=== PATIENT | male | born 1940 ===

== ENCOUNTER → 2016-06-07 | Outpatient (CLI) | payer MEDICARE ==
[~2016-06-07] MED LIST: ACET325T38 PO; ALPR0.5T PO; ALPR0.5T5 PO; ATN25T PO; CLPD75T PO; FURO40TA4 PO; GBPN600T PO; LACT1CAP62 PO; MTP25TSR PO; OMEP20CA12 PO; PANT40TA3 PO; PRAV40TA2 PO; PRV20T PO; PYRI60TA PO; QUET50TA21 PO; TRM50T PO; VENL150C53 PO; VERA360C2 PO; VNL75CCR PO; ZLP5T PO; [UNRECOGNIZED DRUG - CODE] PO
--- NOTE | 2016-06-07 12:16 | Diagnostic Imaging Report ---
PROCEDURE: CT chest pelvis with and abdomen with and without contrast. TECHNIQUE: Multiple contiguous axial images were obtained through the chest, abdomen and pelvis after uneventful bolus administration of intravenous contrast. Precontrast acquisitions were acquired through the abdomen. DATE: June 07, 2016. COMPARISON: Chest radiographs April 25, 2016. Abdominal radiographs October 17, 2013. INDICATION: 76-year-old male with history of colon cancer. FINDINGS: There are changes of centrilobular emphysema. There is a pleurally based opacity in the peripheral aspect of the left upper lobe on axial image 12 which measures up to approximately 8 mm in size. This potentially could relate to focal scarring although a pulmonary nodule would be difficult to exclude. There is a left lower lobe pulmonary nodule on image 51 which measures 3 mm in size. There is no identified focal airspace consolidation additionally noted. There is no pleural effusion. There is no pneumothorax. There is no identified pulmonary embolus. The main pulmonary artery is normal in caliber. The heart is not enlarged. There is no pericardial effusion. There are coronary artery calcifications. There are additional areas of atherosclerotic disease. There is direct origin of the left vertebral artery off the aortic arch. There is a precarinal lymph node on image 23 which measures up to approximately 7 mm in short axis. There are no identified abnormally enlarged mediastinal, hilar, or axillary lymph nodes which specifically meet CT size criteria for adenopathy. The liver is normal in size and contour. There is no identified liver lesion. The main, right, and left portal vein are patent. The gallbladder is unremarkable. There is no intrahepatic or extrahepatic bile duct dilation. The pancreatic parenchyma is unremarkable. The spleen is normal in size. The adrenal glands are unremarkable. Unremarkable appearance of the renal parenchyma. The urinary collecting systems are not distended. There is no renal or ureteral stone. The urinary bladder is grossly unremarkable. The prostate gland is mildly prominent in size. There are sutures at the level of the right colon with adjacent inflammatory stranding and wall thickening of the bowel. There is no identified drainable fluid collection or free intraperitoneal air. There is no large amount of free pelvic fluid. There is an infrarenal abdominal aortic aneurysm which measures up to approximately 3.1 x 3.1 cm in diameter. There is no identified abnormally enlarged lymph node within the abdomen or pelvis which meets CT size criteria for adenopathy. There is no identified bone lesion concerning for metastatic disease to bone. There is a lumbar levoscoliosis. There are multilevel degenerative changes of the spine. There are degenerative changes of the bilateral hips. IMPRESSION: CT CHEST, ABDOMEN AND PELVIS. 1. Sutures at the level of the right colon with abnormal bowel wall thickening of the right colon and adjacent inflammatory stranding. Recommend correlation with timing of recent surgery. No identified free intraperitoneal air or drainable fluid collection. 2. Peripheral 8 mm nodular opacity in the left upper lobe may relate to focal scarring although pulmonary nodule would be difficult to exclude. 3 mm left lower lobe pulmonary nodule which is indeterminate in etiology. Recommend short-term followup CT chest for both findings. Dictated by: Dictated on workstation # [id number]
== END ==
LOC: RAD 09:53
PROVIDERS: ATTEND Surgery
DX: C18.9 Malignant neoplasm of colon, unspecified (principal)
CPT/HCPCS: 71260; 74178; Q9967

== ENCOUNTER → 2016-06-14 | Outpatient (REF) | payer MEDICARE | LOC: LAB 11:50 | PROVIDERS: ATTEND Hospitalist | DX: D62 Acute posthemorrhagic anemia (principal); C18.2 Malignant neoplasm of ascending colon ==